=== PATIENT | female | born 1985 | race African-American/Black ===

== ENCOUNTER 2021-06-17 10:04 | Emergency (ER) | payer BC ==
--- OUTSIDE RECORDS SUMMARY | 2021-06-17 10:07 | XMS REPORT | Continuity of Care Document ---
:1985 Author Organization [facility] t Address [address] [place] [address] Care Team Providers Name Role Phone Myrna Gonsales NP Attending Clinician Problems Condition Condition Condition Status Onset Resolution Last Treating Co mments Source Name Details Category Date Date Treatment Clinician Date Seasonal [facility]al [facility] Migraines Migraines Problem [facility] Anxiety Anxiety Problem [facility] Kidney Kidney Problem Active [facility] Allergies, Adverse Reactions, Alerts Allergy Allergy Status Severity Reaction(s) Onset Inactive Treating Comm ents Source Name Type Date Date Clinician Benadryl Adverse Active sneezing, [facility] Reaction [facility]chy nose [facility] Medications Ordered Filled Start Stop Current Ordering Indication Dosage Frequency Signature Comments Components Source Medication Medication Date Date Medication? Clinician (SIG) Name Name Tessalgurpreet Tessalon 2020- No Adeline [address] [facility] Perles Perles 01-28 Millender as needed [facility] cough [facility] Augmentin Augmentin 2020- No Adeline [address] [facility] 01-28 [facility] Diflucan Diflucan 2019- No Adeline as [facility] -01 28-05 [facility] directed [facility] BusPIRone BusPIRone 2018-0 Yes Adeline [address] [facility] HCl HCl 5-30 Millender as needed [facility]: for [facility] 00 anxiety [facility] Multivitami Multivitami Yes Adeline not [facility] n Gummies n Gummies Millender defined [facility] - Adult Adult [facility] Procedures This patient has no known procedures. Encounters Start End Encounter Admission Attending Care Care Encounter Source Date/Time Date/Time Type Type Clinicians Facility Department ID 2021-02-07 2021-02-07 Emergency [facility] [id number] 14:29:00 15:56:00 Phoebe Knight [id number] [place] [id number] [place] [id number] 2020-01-29 2020-01-29 Outpatient [facility] [id number] [facility] 23:38:00 23:38:00 [facility] 2020-01-29 2020-01-29 [facility] [id number] [facility] 11:30:00 11:30:00 [facility] 2018-04-26 2018-04-26 [facility] [id number] [facility] 14[facility]15:00 14:15:00 [facility] Results This patient has no known results.
--- NOTE | 2021-06-17 11:18 | EDPHYS ---
Physician Documentation [facility] Name: Mavis Weeks Age: 35 yrs Sex: Female : 1985 Arrival Date: 06/17/2021 Time: 10:08 Bed 17 Private MD: ED Physician Kaylah Diaz HPI: 06/17 11:09 This 35 yrs old Black Female presents to ER via Ambulatory with complaints of Leg ma2 Pain-Poss Infection. 11:09 The patient presents with pain, tenderness. The complaints affect the left moran. Onset: ma2 The symptoms/episode began/occurred gradually, 1 day(s) ago. Associated signs and symptoms: Pertinent negatives nausea, rash, vomiting, warmth. Severity of symptoms: At their worst the symptoms were mild, in the emergency department the symptoms are unchanged. 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 Flu vaccine is not up to date. - Social history:: Smoking status: Patient denies any tobacco usage or history of. - Family history:: not pertinent. ROS: 11:09 Constitutional: Negative for fever, chills, and weight loss. ma2 11:09 All other systems are negative. Exam: 11:09 Constitutional: This is a well developed, well nourished patient who is awake, alert, ma2 and in no acute distress. 11:15 Head/Face: Normocephalic, atraumatic. Eyes: Pupils equal round and reactive to light, ma2 extra-ocular motions intact. Lids and lashes normal. Conjunctiva and sclera are non-icteric and not injected. Cornea within normal limits. Periorbital areas with no swelling, redness, or edema. ENT: Nares patent. No nasal discharge, no septal abnormalities noted. Tympanic membranes are normal and external auditory canals are clear. Oropharynx with no redness, swelling, or masses, exudates, or evidence of obstruction, uvula midline. Mucous membranes moist. Neck: Trachea midline, no thyromegaly or masses palpated, and no cervical lymphadenopathy. Supple, full range of motion without nuchal rigidity, or vertebral point tenderness. No Meningismus. Chest/axilla: Normal chest wall appearance and motion. Nontender with no deformity. No lesions are appreciated. Cardiovascular: Regular rate and rhythm with a normal S1 and S2. No gallops, murmurs, or rubs. Normal PMI, no JVD. No pulse deficits. Respiratory: Lungs have equal breath sounds bilaterally, clear to auscultation and percussion. No rales, rhonchi or wheezes noted. No increased work of breathing, no retractions or nasal flaring. Abdomen/GI: Soft, non-tender, with normal bowel sounds. No distension or tympany. No guarding or rebound. No evidence of tenderness throughout. Back: No spinal tenderness. No costovertebral tenderness. Full range of motion. Skin: Warm, dry with normal turgor. Normal color with no rashes, no lesions, and no evidence of cellulitis. MS/ Extremity: left leg pain and redness area of induration 1x1 cm, no fluctuene, otherwise Pulses equal, no cyanosis. Neurovascular intact. Full, normal range of motion. Neuro: Awake and alert, GCS 15, oriented to person, place, time, and situation. Cranial nerves II-XII grossly intact. Motor strength 5/5 in all extremities. Sensory grossly intact. Cerebellar exam normal. Normal gait. Vital Signs: 10:17 BP 115 / 64; Pulse 80; Resp 16 S; Temp 98.1(TE); Pulse Ox 100% on R/A; Weight 92.99 kg ca1 (R); Height 5 ft. 5 in. (165.10 cm) (R); Pain 10/10; 11:43 BP 134 / 61; Pulse 73; Resp 15; Pulse Ox 100% ; ll1 10:17 Body Mass Index 34.11 (92.99 kg, 165.10 cm) ca1 MDM: 10:46 Patient medically screened. ma2 11:15 Differential diagnosis: contusion, abrasion. Differential diagnosis: cellulitis no ma2 abscess. Data reviewed: vital signs, nurses notes. Counseling: I had a detailed discussion with the patient and/or guardian regarding: the historical points, exam findings, and any diagnostic results supporting the discharge/admit diagnosis, the presence of at least one elevated blood pressure reading (>120/80) during this emergency department visit, the need for outpatient follow up. Response to treatment: the patient's symptoms have markedly improved after treatment. Administered Medications: : Drug: Ketorolac 60 mg Route: IM; Site: right vastus lateralis; ll1 11:42 Follow up: Response: No adverse reaction; Pain is decreased; RASS: Alert and Calm (0) ll1 11:21 Drug: Clindamycin 300 mg Route: PO; ll1 11:42 Follow up: Response: No adverse reaction ll1 Disposition Summary: 06/17/21 11:17 Discharge Ordered Location: Home ma2 Condition: Stable ma2 Diagnosis - Cellulitis of left lower limb ma2 Followup: ma2 - With: Private Physician - When: Tomorrow - Reason: If symptoms return, Continuance of care Discharge Instructions: - Discharge Summary Sheet ma2 - Cellulitis, Adult ma2 Forms: - Medication Reconciliation Form ma2 - Thank You Letter ma2 - Antibiotic Education ma2 - Prescription Opioid Use ma2 Prescriptions: - Clindamycin HCl 300 mg Oral Capsule - take 1 capsule by ORAL route every 6 hours for 10 days; 40 capsule; Refills: 0, ma2 Product Selection Permitted - Diclofenac Sodium 75 mg Oral Tablet Sustained Release - take 1 tablet by ORAL route 2 times per day; 30 tablet; Refills: 0, Product ut2 Selection Permitted Signatures: Kaylah Diaz MD MD ut2 Paty Wise RN RN ca1 Shawn Scherer RN RN ll1
--- NOTE | 2021-06-17 11:18 | ER ---
Nurse's Notes [facility] Name: Mavis Weeks Age: 35 yrs Sex: Female : 1985 Arrival Date: 06/17/2021 Time: 10:08 Bed 17 Private MD: Diagnosis: Cellulitis of left lower limb Presentation: 06/17 10:17 Chief complaint: Patient states: Abscess on L leg, moran x 1 week. Coronavirus screen: ca1 Client denies travel out of the [place] in the last 14 days. At this time, the client does not indicate any symptoms associated with coronavirus-19. Ebola Screen: Patient negative for fever greater than or equal to 101.5 degrees Fahrenheit, and additional compatible Ebola Virus Disease symptoms Patient denies exposure to infectious person. Patient denies travel to an Ebola-affected area in the 21 days before illness onset. No symptoms or risks identified at this time. Initial Sepsis Screen: Does the patient meet any 2 criteria? No. Patient's initial sepsis screen is negative. Does the patient have a suspected source of infection? No. Patient's initial sepsis screen is negative. Risk Assessment: Do you want to hurt yourself or someone else? Patient reports no desire to harm self or others. Onset of symptoms was June 17, 2021. 10:17 Method Of Arrival: Ambulatory ca1 10:17 Acuity: EUN 4 ca1 Triage Assessment: 10:20 General: Appears in no apparent distress. Behavior is calm, cooperative, appropriate ll1 for age. Pain: Complains of pain in left moran Quality of pain is described as aching. Derm: Abscess located on left moran is dime sized, has clear drainage, is hot to touch, is red. 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 Flu vaccine is not up to date. - Social history:: Smoking status: Patient denies any tobacco usage or history of. - Family history:: not pertinent. Screenin:44 Abuse screen: Denies threats or abuse. Nutritional screening: No deficits noted. ll1 Tuberculosis screening: No symptoms or risk factors identified. Fall Risk None identified. Total Caldera Fall Scale indicates No Risk (0-24 pts). Assessment: 11:45 Reassessment: No changes from previously documented assessment. Patient and/or family ll1 updated on plan of care and expected duration. Pain level reassessed. Patient is alert, oriented x 3, equal unlabored respirations, skin warm/dry/pink. Patient states feeling better. Vital Signs: 10:17 BP 115 / 64; Pulse 80; Resp 16 S; Temp 98.1(TE); Pulse Ox 100% on R/A; Weight 92.99 kg ca1 (R); Height 5 ft. 5 in. (165.10 cm) (R); Pain 10/10; 11:43 BP 134 / 61; Pulse 73; Resp 15; Pulse Ox 100% ; ll1 10:17 Body Mass Index 34.11 (92.99 kg, 165.10 cm) ca1 ED Course: 10:08 Patient arrived in ED. ds1 10:18 Triage completed. ca1 10:18 Arm band placed on right wrist. ca1 10:21 Shawn Scherer, RN is Primary Nurse. ll1 10:21 Patient placed in an exam room, on a stretcher. ll1 10:30 Kaylah Diaz MD is Attending Physician. ma2 11:44 Patient has correct armband on for positive identification. Bed in low position. Call ll1 light in reach. Side rails up X 1. Cardiac monitoring not applicable on this patient. 11:44 No provider procedures requiring assistance completed. Patient did not have IV access ll1 during this emergency room visit. Administered Medications: 11:21 Drug: Ketorolac 60 mg Route: IM; Site: right vastus lateralis; ll1 11:42 Follow up: Response: No adverse reaction; Pain is decreased; RASS: Alert and Calm (0) ll1 11:21 Drug: Clindamycin 300 mg Route: PO; ll1 11:42 Follow up: Response: No adverse reaction ll1 Outcome: 11:17 Discharge ordered by . ma2 11:44 Discharged to home ambulatory. ll1 11:44 Condition: stable 11:44 Discharge instructions given to patient, Instructed on discharge instructions, follow up and referral plans. medication usage, wound care, Demonstrated understanding of instructions, follow-up care, medications, wound care, Prescriptions given X 2. 11:45 Patient left the ED. ll1 Signatures: Shanika Berman1 Kaylah Diaz MD MD ma2 Paty Wise RN RN ca1 Shawn Scherer RN RN ll1
[2021-06-17] MEDS ORDERED: KETOROLAC 30 MG/ML INJ ONE (11:28)
[2021-06-17 11:52] VITALS: TEMP 98.1; O2SAT 100
[2021-06-17 11:53] VITALS: BP 134/61
== END 2021-06-17 11:45 | disposition home or self-care (01) ==
LOC: ER 10:04
DX: L03.116 Cellulitis of left lower limb (principal)
CPT/HCPCS: 96372; 99283

== ENCOUNTER 2021-09-15 01:25 | Emergency (ER) | payer BC ==
--- NOTE | 2021-09-15 02:54 | ER ---
Nurse's Notes [facility] Name: Mavis Weeks Age: 35 yrs Sex: Female : 1985 Arrival Date: 09/15/2021 Time: 01:29 Bed 20 Private MD: Diagnosis: Acute tonsillitis, unspecified Presentation: 09/15 01:37 Chief complaint: Patient states: States she has been struggling with a sore throat for wg 3 days and hasn't gotten better. Has tried motrin, gargling salt water, etc. Pt denies any other symptoms including respiratory, fevers or chills. Coronavirus screen: Vaccine status: Patient reports being unvaccinated. Ebola Screen: Patient negative for fever greater than or equal to 101.5 degrees Fahrenheit, and additional compatible Ebola Virus Disease symptoms Patient denies exposure to infectious person. Patient denies travel to an Ebola-affected area in the 21 days before illness onset. No symptoms or risks identified at this time. Initial Sepsis Screen: Does the patient meet any 2 criteria? No. Patient's initial sepsis screen is negative. Does the patient have a suspected source of infection? No. Patient's initial sepsis screen is negative. Risk Assessment: Do you want to hurt yourself or someone else? Patient reports no desire to harm self or others. Onset of symptoms was September 12, 2021. 01:37 Method Of Arrival: Ambulatory 01:37 Acuity: EUN 4 Triage Assessment: 01:40 General: Appears in no apparent distress. well groomed, well developed, Behavior is calm, cooperative, appropriate for age. Pain: Complains of pain in Throat. EENT: Reports Sore throat when swallowing. . 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 - Social history:: Smoking status: Patient denies any tobacco usage or history of. Screenin:16 Abuse screen: Denies threats or abuse. Denies injuries from another. Nutritional sj1 screening: No deficits noted. Tuberculosis screening: No symptoms or risk factors identified. Fall Risk None identified. Assessment: 02:15 General: Appears in no apparent distress. Behavior is calm, cooperative, appropriate sj1 for age. Pain: Complains of pain in throat Pain does not radiate. Pain currently is 10 out of 10 on a pain scale. at worst was 10 out of 10 on a pain scale. level that patient reports is acceptable is 2 out of 10 on a pain scale. Quality of pain is described as aching, Pain began 2-3 days ago. Is continuous. Neuro: No deficits noted. Cardiovascular: No deficits noted. Respiratory: No deficits noted. Airway is patent Trachea midline Respiratory effort is even, unlabored, Respiratory pattern is regular, symmetrical, Breath sounds are clear. GI: No deficits noted. : No deficits noted. EENT: Throat Reports difficulty swallowing. Derm: No deficits noted. Musculoskeletal: No deficits noted. Vital Signs: 01:37 BP 115 / 80; Pulse 88; Resp 18; Temp 98.9; Pulse Ox 100% on R/A; Weight 88.9 kg; Height wg 5 ft. 5 in. (165.10 cm); Pain 9/10; 03:01 BP 114 / 68; Pulse 69; Resp 16 S; Temp 98.9; Pulse Ox 100% on R/A; Pain 10/10; sj1 01:37 Body Mass Index 32.62 (88.90 kg, 165.10 cm) ED Course: 01:29 Patient arrived in ED. wm 01:40 Triage completed. wg 01:40 Arm band placed on right wrist. wg 01:43 Dustin Hogan PA is PHCP. cp 01:43 Dustin Aceves MD is Attending Physician. cp 02:16 Patient has correct armband on for positive identification. Call light in reach. Side sj1 rails up X 1. 02:16 No provider procedures requiring assistance completed. sj1 02:17 Rapid Strep Sent. sj1 03:01 Patient did not have IV access during this emergency room visit. sj1 Administered Medications: No medications were administered Outcome: 02:53 Discharge ordered by . cp 03:01 Discharged to home ambulatory. sj1 03:01 Condition: stable 03:01 Discharge instructions given to patient, Instructed on discharge instructions, follow up and referral plans. medication usage, Demonstrated understanding of instructions, follow-up care, medications, Prescriptions given X 2. 03:01 Patient left the ED. sj1 Signatures: Dustin Hogan PA PA cp Marsh, Wendy wm Gamba, Liam, RN wg Sayda Gaines RN RN sj1
--- NOTE | 2021-09-15 02:54 | EDPHYS ---
Physician Documentation [facility] Name: Mavis Weeks Age: 35 yrs Sex: Female : 1985 Arrival Date: 09/15/2021 Time: 01:29 Bed 20 Private MD: Dustin Sesay HPI: 09/15 02:05 This 35 yrs old Black Female presents to ER via Ambulatory with complaints of Sore cp Throat. 02:05 The patient presents with sore throat. Onset: The symptoms/episode began/occurred 3 cp day(s) ago. 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 - Social history:: Smoking status: Patient denies any tobacco usage or history of. ROS: 02:10 Constitutional: Negative for body aches, chills, fever, poor PO intake. cp 02:10 Eyes: Negative for injury, pain, redness, and discharge. cp 02:10 ENT: Positive for sore throat, Negative for drainage from ear(s), ear pain, difficulty swallowing, difficulty handling secretions. 02:10 Respiratory: Negative for cough, shortness of breath, wheezing. 02:10 Abdomen/GI: Negative for abdominal pain, nausea, vomiting, and diarrhea, constipation, anorexia. 02:10 Skin: Negative for rash. 02:10 Neuro: Negative for headache, weakness. 02:10 All other systems are negative. Exam: 02:12 Constitutional: The patient appears in no acute distress, alert, awake, non-toxic, well cp developed, well nourished. 02:12 Head/Face: Normocephalic, atraumatic. cp 02:12 Eyes: Periorbital structures: appear normal, Conjunctiva: normal, no exudate, no injection, Sclera: no appreciated abnormality, Lids and lashes: appear normal, bilaterally. 02:12 ENT: External ear(s): are unremarkable, Ear canal(s): are normal, clear, TM's: dullness, bilaterally, Nose: is normal, Mouth: Lips: moist, Oral mucosa: pink and intact, moist, Posterior pharynx: Airway: no evidence of obstruction, patent, Tonsils: bilaterally enlarged, with erythema, no exudate, Uvula: midline, non-edematous, no erythema, swelling, is not appreciated, erythema, that is mild, exudate, is not appreciated, Voice: is normal. 02:12 Neck: ROM/movement: Meningeal signs: are not present, nuchal rigidity, is not appreciated, Lymph nodes: lymphadenopathy is appreciated, anterior cervical nodes. 02:12 Chest/axilla: Inspection: normal. 02:12 Cardiovascular: Rate: normal. 02:12 Respiratory: the patient does not display signs of respiratory distress, Respirations: normal, no use of accessory muscles, no retractions, labored breathing, is not present. Vital Signs: 01:37 BP 115 / 80; Pulse 88; Resp 18; Temp 98.9; Pulse Ox 100% on R/A; Weight 88.9 kg; Height wg 5 ft. 5 in. (165.10 cm); Pain 9/10; 03:01 BP 114 / 68; Pulse 69; Resp 16 S; Temp 98.9; Pulse Ox 100% on R/A; Pain 10/10; sj1 01:37 Body Mass Index 32.62 (88.90 kg, 165.10 cm) wg MDM: 01:44 Patient medically screened. alexa 02:15 Differential diagnosis: apthous stomatitis, apthous ulcer, epiglottitis, sophia-velarde cp virus, group A strep tonsillitis, dxiie's angina, mononucleosis, peritonsillar abscess pharyngitis, retropharyngeal abcess. 02:52 Data reviewed: vital signs, nurses notes, and as a result, I will discharge patient. cp 02:52 Counseling: I had a detailed discussion with the patient and/or guardian regarding: the cp historical points, exam findings, and any diagnostic results supporting the discharge/admit diagnosis, to return to the emergency department if symptoms worsen or persist or if there are any questions or concerns that arise at home. 09/15 02:00 Order name: Rapid Strep cp 09/15 02:59 Order name: Throat Culture EDMS Administered Medications: No medications were administered Disposition Summary: 09/15/21 02:53 Discharge Ordered Location: Home cp Problem: new cp Symptoms: are unchanged cp Condition: Stable cp Diagnosis - Acute tonsillitis, unspecified cp Followup: cp - With: Private Physician - When: 2 - 3 days - Reason: Worsening of condition Discharge Instructions: - Discharge Summary Sheet cp - Tonsillitis cp Forms: - Medication Reconciliation Form cp - Thank You Letter cp - Antibiotic Education cp - Prescription Opioid Use cp Prescriptions: - Augmentin 875-125 mg Oral Tablet - take 1 tablet by ORAL route every 12 hours for 10 days; 20 tablet; Refills: 0, cp Product Selection Permitted - Ibuprofen 800 mg Oral Tablet - take 1 tablet by ORAL route every 8 hours As needed take with food; 30 tablet; cp Refills: 0, Product Selection Permitted Addendum: 09/16/2021 10:04 Co-signature as Attending Physician, Dustin Aceves MD I agree with the assessment and c escoto plan of care. Signatures: Dispatcher [employer] Dustin Chavarria MD MD cha Page, Corey, PA PA Memo Godoy, RN wg
[2021-09-15 03:11] VITALS: TEMP 98.9; O2SAT 100
[2021-09-15 03:12] VITALS: BP 114/68
== END 2021-09-15 03:01 | disposition home or self-care (01) ==
LOC: ER 01:25
DX: J03.90 Acute tonsillitis, unspecified (principal)
CPT/HCPCS: 87070; 87081; 99283

== ENCOUNTER 2022-07-27 15:20 | Emergency (ER) | payer BC ==
--- OUTSIDE RECORDS SUMMARY | 2022-07-27 15:24 | XMS REPORT | Continuity of Care Document ---
:1985 Author Organization [facility] t Address [address] [place] [address] Care Team Providers Name Role Phone SaschaAdeline Attending Clinician Unavailable Rosalia Gonsales NP Attending Clinician ROSALIA GONSALES Attending Clinician Unavailable Payers Payer Name Policy Type Policy Number Effective Date Expiration Date S ource Problems Condition Condition Condition Status Onset Resolution Last Treating Co mments Source Name Details Category Date Date Treatment Clinician Date Seasonal Seasonal Problem Active Commo n allergies allergies Spir [facility] Migraines Migraines Problem Active Com mon [facility] Anxiety Anxiety Problem Active Common [facility] Kidney Kidney Problem Active Common stones stones [facility] No known No known Disease Unive rs active active ity of problems problems [facility] Allergies, Adverse Reactions, Alerts Allergy Allergy Status Severity Reaction(s) Onset Inactive Treating Comm ents Source Name Type Date Date Clinician NO KNOWN Drug Active Univers ALLERGIE Class ity of S [facility] Benadryl Adverse Active sneezing, Comm on Reaction itchy nose Spir [facility] Social History Social Habit Start Date Stop Date Quantity Comments Source Exposure to Not sure [facility] SARS-CoV-2 (event) Medica l Branch Sex Assigned At [birth year] [facility] 00:00:00 00:00:00 [facility] [place] Smoking Status Start Date Stop Date Source Unknown if ever smoked [facility] Medications Ordered Filled Start Stop Current Ordering Indication Dosage Frequency Signature Comments Components Source Medication Medication Date Date Medication? Clinician (SIG) Name Name methylPREDN Yes [id number] Take by Univers ISolone 4 3-14 mouth ity of mg tablets 00:00: SEE-INSTRU [place] 00 CTIONS. Medical follow Branch package directions dexamethaso 2020- No 10mg 10 mg, Uni vers ne 02-07 Intramuscu ity of (DECADRON 22:45: 21:35 lar, ONCE, [place] PHOSPHATE) 00 :00 1 dose, Medica l injection Sat Branch 10 mg 02/07/21 at 1645, Routine amoxicillin Yes [id number] 500mg Take 1 Univers 500 mg 02-07 capsule by ity of capsule 00:00: mouth 3 (three) Medical times Branch daily. Tessalon Tessalon 2020- No Adeline 1 capsule Common Perles Perles 01-28 Mill[place] as needed Spirit 00:00: 00:00 for cough - [facility]I 00 :00 [facility] Augmentin Augmentin 2019- No Adeline 1 tablet Common 01-28 [place] Spirit 00:00: 00:00 - [facility]I 00 :00 [facility] Diflucan Diflucan 2020- No Adeline as Com mon 01-28 [place] directed Spiri t 00:00: 00:00 - CHI 00 :00 [facility] BusPIRone BusPIRone 0 Yes Adeline 1 tablet Common HCl HCl 5-30 Millender as needed Spiri t 00:00: for - CHI 00 anxiety [facility] Multivitami Multivitami Yes Adeline not Common n Gummies n Gummies Millender defined Spirit Adult Adult - CHI [facility] Vital Signs Vital Name Observation Time Observation Value Comments Source Systolic blood 2021-02-07 20:28:00 121 mm[Hg] Univer sity pressure [facility] Diastolic blood 2021-02-07 20:28:00 78 mm[Hg] [facility] rate 2021-02-07 20:28:00 80 /min Universi [facility] Body temperature 2021-02-07 20:28:00 36.94 [facility] Respiratory rate 2021-02-07 20:28:00 20 /min Univ ers[facility] Body weight 2021-02-07 20:28:00 86.183 kg Universi ty of [facility] Oxygen saturation in 2021-02-07 20:28:00 99 /min University of Arterial blood by [facility] Pulse oximetry Branch Systolic blood 2021-02-07 20:28:00 121 mm[Hg] Univer sity of pressure [place] [facility] [place] Diastolic blood 2021-02-07 20:28:00 78 mm[Hg] Unive rsity of pressure [facility] Branch Heart rate 2021-02-07 20:28:00 80 /min Universi ty of [facility] Body temperature 2021-02-07 20:28:00 36.94 [facility] Respiratory rate 2021-02-07 20:28:00 20 /min [facility] ersity of [facility] Body weight 2021-02-07 20:28:00 86.183 kg Universi ty of [facility] Oxygen saturation in 2021-02-07 20:28:00 99 /min University of Arterial blood by [facility] Pulse oximetry Branch Procedures Procedure Date / Time Performed Performing Clinician Sour e POCT TEST 2021-02-07 21:05:00 Rosalia Gonsales [facility] RAPID STREP SCREEN 2021-02-07 21:01:00 Rosalia Gonsales [facility] FOR GROUP A Medical Branch NOTICE OF PRIVACY 2021-02-07 20:21:12 Doctor Unassigned, No Univ [facility] PRACTICES Name Medical Branch CONSENT/REFUSAL FOR 2021-02-07 20:20:57 [facility], [facility] Name Medical Branch TREATMENT Encounters Start End Encounter Admission Attending Care Care Encounter Source Date/Time Date/Time Type Type Clinicians Facility Department ID 2021-12-23 Outpatient Sascha [facility] [id number] Common 11:11:34 Adeline [id number] [facility] 2021-02-07 2021-02-07 Emergency rDu [facility] [id number] 14:29:00 15:56:00 Rosalia Knight [id number] [place] [id number] [place] [id number] [facility] 2021-02-07 2021-02-07 Emergency [facility] [id number] Univers 14:29:00 15:56:00 Rosalia Knight [id number] italfa [facility] [id number] [facility] [id number] [place] [id number] Branch 2021-02-07 2021-02-07 Emergency X [facility] ERT [id number] Univers 14:29:00 14:29:00 ROSALIA pitt [facility] 2020-01-29 2020-01-29 [facility] [id number] Common 23:38:00 23:38:00 t [facility] [address] [facility] 2020-01-29 2020-01-29 [facility] [id number] Common 11:30:00 11:30:00 t [facility] [address] [facility] 2018-04-26 2018-04-26 [facility] [id number] Common 14:15:00 14:15:00 t [facility] [address] [facility] Results Test Description Test Time Test Comments Results Result Comments Source RAPID STREP SCREEN FOR GROUP A 2021-02-07 21:13:42 Test Item Value Reference Range Interpretation Comme nts Streptococcus pyogenes (group A) antigen (test code = 24327- 2) Negative Negative Lab Interpretation (test code = 49973-0) [id number]:05[facility]00 Test Item Value Reference Range Interpretation Comments POCT PREG (test code = 1605) negative On board controls acceptable with present C Line (test code = 3574) POCT PREG LOT # (test code = 3575) [id number] POCT PREG TEST DATE (test 2022-09-27 code = 3576) Lab Interpretation (test code = Normal 10137-5) [facility]
[2022-07-27] MEDS ORDERED: KETOROLAC 30 MG/ML INJ ONE ×2 (17:13→17:19)
--- NOTE | 2022-07-27 18:18 | RAD REPORT ---
EXAM DESCRIPTION: RAD - C Spine Ap/Lat - 07/27/2022 5:58 pm CLINICAL HISTORY: PAIN COMPARISON: SPINE CERVICAL AP LAT dated 03/23/2015 FINDINGS: No acute fracture. No malalignment. No significant focal degenerative changes. IMPRESSION: No acute osseous abnormality involving the cervical spine.
--- NOTE | 2022-07-27 18:43 | ER ---
Nurse's Notes [facility] Name: Mavis Weeks Age: 36 yrs Sex: Female : 1985 Arrival Date: 07/27/2022 Time: 15:26 Bed 25 Private MD: Diagnosis: Acute tonsillitis, unspecified;Cervicalgia Presentation: 07/27 15:46 Chief complaint: Patient states: Tuesday i dont know if i lifted something but i am tw2 having a sharp pain in the back of my neck and running down my spine since Tuesday. and another thing i am here for is a severe sore throat that is has been off and on for a month but in the past 2 days it has been the worst that it has been. no fever. no nasal congestion. no cough. i do have allergies but i havent had any drainage so i dont know. Coronavirus screen: sore throat, Client presents with at least one sign or symptom that may indicate coronavirus-19. Standard/surgical mask placed on the client. Provider contacted for isolation considerations. Ebola Screen: Patient denies travel to an Ebola-affected area in the 21 days before illness onset. Initial Sepsis Screen: Does the patient meet any 2 criteria? No. Patient's initial sepsis screen is negative. Does the patient have a suspected source of infection? No. Patient's initial sepsis screen is negative. Risk Assessment: Do you want to hurt yourself or someone else? Patient reports no desire to harm self or others. Onset of symptoms was July 27, 2022. 15:46 Method Of Arrival: Ambulatory tw2 15:46 Acuity: EUN 3 tw2 Triage Assessment: 15:49 General: Appears in no apparent distress. uncomfortable, slender, well groomed, tw2 Behavior is calm, cooperative, appropriate for age. Pain: Complains of pain in neck pain. Neuro: Level of Consciousness is awake, alert, obeys commands, Oriented to person, place, time, situation. 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 - Social history:: Smoking status: Reported history of juuling and/or vaping. i started vaping 5 days ago. Screenin:10 Abuse screen: Denies threats or abuse. Denies injuries from another. Nutritional eh3 screening: No deficits noted. Tuberculosis screening: No symptoms or risk factors identified. Fall Risk None identified. Assessment: 16:10 General: Appears in no apparent distress. uncomfortable, Behavior is calm, cooperative, eh3 appropriate for age. Pain: Complains of pain in posterior neck Pain radiates to thoracic area and lumbar area Pain currently is 9 out of 10 on a pain scale. Quality of pain is described as sharp, shooting, stabbing, Pain began 2-3 days ago. Is continuous, Alleviated by nothing. Aggravated by increased activity, repositioning, weight bearing. Neuro: Level of Consciousness is awake, alert, obeys commands, Oriented to person, place, time, situation, Patient Intake Representative are equal bilaterally Moves all extremities. Gait is steady, Speech is normal, Facial symmetry appears normal, Pupils are PERRLA, Intact. Cardiovascular: Capillary refill < 3 seconds Patient's skin is warm and dry. Respiratory: Airway is patent Respiratory effort is even, unlabored. GI: No signs and/or symptoms were reported involving the gastrointestinal system. : No signs and/or symptoms were reported regarding the genitourinary system. EENT: No signs and/or symptoms were reported regarding the EENT system. Derm: No signs and/or symptoms reported regarding the dermatologic system. Musculoskeletal: Circulation, motion, and sensation intact. Range of motion: intact in all extremities. Vital Signs: 15:46 BP 107 / 81; Pulse 70; Resp 17; Temp 98.5(O); Pulse Ox 100% on R/A; Weight 70.31 kg tw2 (R); Height 5 ft. 5 in. (165.10 cm); Pain 10/10; 16:00 BP 120 / 83; Pulse 77; Resp 18; Pulse Ox 100% on R/A; Pain 9/10; eh3 17:00 BP 109 / 79; Pulse 74; Resp 18; Pulse Ox 99% on R/A; Pain 9/10; eh3 17:58 BP 122 / 109; Pulse 64; Resp 18; Pulse Ox 100% on R/A; Pain 3/10; eh3 19:00 BP 109 / 68; Pulse 69; Resp 17; Pulse Ox 100% on R/A; Pain 3/10; eh3 15:46 Body Mass Index 25.79 (70.31 kg, 165.10 cm) tw2 ED Course: 15:26 Patient arrived in ED. rg4 15:26 Dustin Hogan PA is PHCP. cp 15:26 Donell Contreras DO is Attending Physician. cp 15:48 Triage completed. tw2 15:49 Arm band placed on. tw2 15:52 Kandi Sanchez, RN is Primary Nurse. eh3 16:10 Patient has correct armband on for positive identification. Bed in low position. Call eh3 light in reach. Side rails up X2. Client placed on continuous cardiac and pulse oximetry monitoring. NIBP monitoring applied. 17:20 Strep Sent. eh3 17:20 COVID-19 SARS RT PCR (Document "Date of Onset" if Symptomatic) Sent. eh3 18:01 XRAY C Spine Ap/lat In Process Unspecified. EDMS 19:00 No provider procedures requiring assistance completed. Patient did not have IV access eh3 during this emergency room visit. Administered Medications: 17:10 Drug: Ketorolac 30 mg Route: IM; Site: right deltoid; eh3 18:00 Follow up: Response: Pain is decreased eh3 Medication: 19:00 VIS not applicable for this client. eh3 Outcome: 18:41 Discharge ordered by MD. cp 19:00 Condition: stable eh3 19:00 Discharge instructions given to patient, Instructed on discharge instructions, follow up and referral plans. medication usage, Demonstrated understanding of instructions, follow-up care, medications, Prescriptions given X 3. 19:16 Discharged to home ambulatory. eh3 19:17 Patient left the ED. eh3 Signatures: Dispatcher [employer] EDMS Dustin Hogan PA PA cp Wise, Tara, RN RN tw2 Tran Jimenez rg4 Kandi Sanchez, ALLAN RN eh3 Corrections: (The following items were deleted from the chart) 16:43 16:38 General: Appears in no apparent distress. uncomfortable, Behavior is calm, eh3 cooperative, appropriate for age, eh3 16:43 16:38 Pain: Complains of pain in posterior neck Pain radiates to thoracic area and eh3 lumbar area Pain currently is 9 out of 10 on a pain scale. Quality of pain is described as sharp, shooting, stabbing, Pain began 2-3 days ago. Is continuous, Alleviated by nothing. Aggravated by increased activity, repositioning, weight bearing, [facility] 16:43 16:38 Neuro: Level of Consciousness is awake, alert, obeys commands, Oriented to [address] person, place, time, situation, Patient Intake Representative are equal bilaterally Moves all extremities. Gait is steady, Speech is normal, Facial symmetry appears normal, Pupils are PERRLA, Intact [facility] 16:43 16:38 Cardiovascular: Capillary refill < 3 seconds Patient's skin is warm and dry. [place] [id number] 16:43 16:38 Respiratory: Airway is patent Respiratory effort is even, unlabored, [place] [address] 16:43 16:38 GI: No signs and/or symptoms were reported involving the gastrointestinal system. [place] [id number] 16:43 16:38 : No signs and/or symptoms were reported regarding the genitourinary system. [facility] 16:43 16:38 EENT: No signs and/or symptoms were reported regarding the EENT system. [place] [address] 16:43 16:38 Derm: No signs and/or symptoms reported regarding the dermatologic system. [place] [address] 16:43 16:38 Musculoskeletal: Circulation, motion, and sensation intact. Range of motion: [facility] intact in all extremities, [facility] 16:43 16:38 Abuse screen: Denies threats or abuse. Denies injuries from another. [place] [address] 16:43 16:38 Nutritional screening: No deficits noted. [place] [address] 16:43 16:38 Tuberculosis screening: No symptoms or risk factors identified. [place] [address] 16:43 16:38 Fall Risk None identified. [place] [id number] 16:44 16:38 Patient has correct armband on for positive identification. Bed in low position. [facility] Call light in reach. Side rails up X2. [facility] 16:44 16:38 Client placed on continuous cardiac and pulse oximetry monitoring. NIBP [facility] monitoring applied. [facility]
--- NOTE | 2022-07-27 18:43 | EDPHYS ---
Physician Documentation [facility] Name: Mavis Weeks Age: 36 yrs Sex: Female : 1985 Arrival Date: 07/27/2022 Time: 15:26 Bed 25 Private MD: ED Physician Donell Contreras HPI: 07/27 17:00 This 36 yrs old Black Female presents to ER via Ambulatory with complaints of Neck cp Pain, <24hrs Old, Back Pain, Sore Throat. 17:00 The patient or guardian complains of pain, that is acute, tenderness, stiffness. The cp symptoms are located posterior neck. Onset: The symptoms/episode began/occurred 2 day(s) ago. Context: The neck injury/problem resulted from from unknown cause. 17:00 Associated signs and symptoms: Pertinent positives: sore throat, Pertinent negatives: cp fever, headache, numbness, tingling, weakness, radiating pain down arms, difficulty swallowing. 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 - Social history:: Smoking status: Reported history of juuling and/or vaping. i started vaping 5 days ago. ROS: 17:05 Constitutional: Negative for body aches, chills, fever, poor PO intake. cp 17:05 Eyes: Negative for injury, pain, redness, and discharge. cp 17:05 ENT: Positive for sore throat, Negative for drainage from ear(s), ear pain, sinus congestion, difficulty swallowing, difficulty handling secretions. 17:05 Neck: Positive for pain with movement, stiffness, tenderness, Negative for injury or acute deformity. 17:05 Cardiovascular: Negative for chest pain, edema, palpitations. 17:05 Respiratory: Negative for cough, shortness of breath, wheezing. 17:05 Abdomen/GI: Negative for abdominal pain, nausea, vomiting, and diarrhea. 17:05 Skin: Negative for cellulitis, rash. 17:05 Neuro: Negative for altered mental status, headache, weakness. 17:05 All other systems are negative. Exam: 17:10 Constitutional: The patient appears in no acute distress, alert, awake, non-toxic, well cp developed, well nourished, uncomfortable. 17:10 Head/Face: Normocephalic, atraumatic. cp 17:10 Eyes: Periorbital structures: appear normal, Conjunctiva: normal, no exudate, no injection, Sclera: no appreciated abnormality, Lids and lashes: appear normal, bilaterally. 17:10 ENT: External ear(s): are unremarkable, Ear canal(s): are normal, clear, TM's: bulging, is not appreciated, bilaterally, dullness, bilaterally, erythema, is not appreciated, bilaterally, Nose: is normal, Mouth: Lips: moist, Oral mucosa: moist, Tongue: is normal, Posterior pharynx: Airway: no evidence of obstruction, patent, Tonsils: bilaterally enlarged, with exudate, mild erythema, Uvula: midline, erythema, that is mild, Voice: is normal. 17:10 Neck: ROM/movement: pain, that is mild, with rotation to the right, limited range of motion, is not appreciated, Meningeal signs: are not present, nuchal rigidity, is not appreciated. 17:10 Chest/axilla: Inspection: normal. 17:10 Cardiovascular: Rate: normal, Rhythm: regular. 17:10 Respiratory: the patient does not display signs of respiratory distress, Respirations: normal, no use of accessory muscles, no retractions, labored breathing, is not present, Breath sounds: are clear throughout, no decreased breath sounds, no stridor, no wheezing. 17:10 Abdomen/GI: Inspection: abdomen appears normal, Palpation: abdomen is soft and non-tender, in all quadrants. 17:10 Back: pain, that is mild, of the right trapezius, ROM is normal. 17:10 Skin: no rash present. 17:10 Neuro: Orientation: to person, place \\T\\ time. Mentation: is normal, Motor: moves all fours, strength is normal, Sensation: is normal. Vital Signs: 15:46 BP 107 / 81; Pulse 70; Resp 17; Temp 98.5(O); Pulse Ox 100% on R/A; Weight 70.31 kg tw2 (R); Height 5 ft. 5 in. (165.10 cm); Pain 10/10; 16:00 BP 120 / 83; Pulse 77; Resp 18; Pulse Ox 100% on R/A; Pain 9/10; eh3 17:00 BP 109 / 79; Pulse 74; Resp 18; Pulse Ox 99% on R/A; Pain 9/10; eh3 17:58 BP 122 / 109; Pulse 64; Resp 18; Pulse Ox 100% on R/A; Pain 3/10; eh3 19:00 BP 109 / 68; Pulse 69; Resp 17; Pulse Ox 100% on R/A; Pain 3/10; eh3 15:46 Body Mass Index 25.79 (70.31 kg, 165.10 cm) tw2 MDM: 16:14 Patient medically screened. cp 18:00 Differential diagnosis: cervical strain, tonsillitis, strep throat, retropharyngeal cp abscess. 18:40 Data reviewed: vital signs, nurses notes, lab test result(s), radiologic studies, plain cp films. 07/27 16:57 Order name: Strep; Complete Time: 15:13 cp 07/27 17:01 Order name: COVID-19 SARS RT PCR (Document "Date of Onset" if Symptomatic); Complete cp Time: 15:13 07/27 16:57 Order name: XRAY C Spine Ap/lat; Complete Time: 15:13 cp 07/27 18:14 Order name: Throat Culture EDMS Administered Medications: 17:10 Drug: Ketorolac 30 mg Route: IM; Site: right deltoid; eh3 18:00 Follow up: Response: Pain is decreased eh3 Disposition: 07/28 15:13 Co-signature as Attending Physician, Donell AMBROSIO was immediately available onsite ms3 in the emergency department for consultation in the care of the patient. Disposition Summary: 07/27/22 18:41 Discharge Ordered Location: Home cp Problem: new cp Symptoms: have improved cp Condition: Stable cp Diagnosis - Acute tonsillitis, unspecified cp - Cervicalgia cp Followup: cp - With: Private Physician - When: 2 - 3 days - Reason: Worsening of condition Discharge Instructions: - Discharge Summary Sheet cp - Musculoskeletal Pain cp - Tonsillitis cp - Heat Therapy cp - Neck Exercises cp - Form - Excuse from Work, School, or Physical Activity eh3 - Form - Return To Work eh3 Forms: - Medication Reconciliation Form cp - Thank You Letter cp - Antibiotic Education cp - Prescription Opioid Use cp Prescriptions: - Clindamycin HCl 300 mg Oral Capsule - take 1 capsule by ORAL route every 6 hours for 10 days; 40 capsule; Refills: 0, cp Product Selection Permitted - Cyclobenzaprine 10 mg Oral Tablet - take 1 tablet by ORAL route every 8 hours As needed; 20 tablet; Refills: 0, cp Product Selection Permitted - Diclofenac Sodium 75 mg Oral Tablet Sustained Release - take 1 tablet by ORAL route 2 times per day; 30 tablet; Refills: 0, Product cp Selection Permitted Signatures: Dispatcher [employer] EDMS Dustin Hogan PA PA Karrie Bejarano RN RN tw2 Donell Contreras DO DO ms3 Kandi Sanchez, RN RN eh3
[2022-07-27 19:41] VITALS: TEMP 98.5
[2022-07-27 19:48] VITALS: O2SAT 100
[2022-07-27 19:51] VITALS: BP 109/68
== END 2022-07-27 19:17 | disposition home or self-care (01) ==
LOC: ER 15:20
DX: J03.90 Acute tonsillitis, unspecified (principal); Z20.822 Contact with and (suspected) exposure to COVID-19
CPT/HCPCS: 87070; 87081; 72040; U0003

== ENCOUNTER 2022-10-04 10:31 | Emergency (ER) | payer BC ==
--- OUTSIDE RECORDS SUMMARY | 2022-10-04 10:34 | XMS REPORT | Continuity of Care Document ---
:1985 Author Organization [facility] t Address [address] [place] [address] Care Team Providers Name Role Phone SaschaAdeline Attending Clinician Unavailable Rosalia Gonsales NP Attending Clinician ROSALIA GONSALES Attending Clinician Unavailable Payers Payer Name Policy Type Policy Number Effective Date Expiration Date S ource Problems Condition Condition Condition Status Onset Resolution Last Treating Co mments Source Name Details Category Date Date Treatment Clinician Date Seasonal Seasonal Problem Active Commo n allergies allergies [facility] Migraines Migraines Problem Active Com mon [facility] Anxiety Anxiety Problem Active Common [facility] Kidney Kidney Problem Active Common stones stones [facility] No known No known Disease Unive rs active active ity of problems problems [facility] Allergies, Adverse Reactions, Alerts Allergy Allergy Status Severity Reaction(s) Onset Inactive Treating Comm ents Source Name Type Date Date Clinician NO KNOWN Drug Active Univers ALLERGIE Class ity of S [facility] Benadryl Adverse Active sneezing, Comm on Reaction itchy nose Sp[facility] Social History Social Habit Start Date Stop Date Quantity Comments Source Exposure to Not sure [facility] SARS-CoV-2 (event) Medica l Branch Sex Assigned At [birth year] [facility] 00:00:00 00:00:00 Medical [place] Smoking Status Start Date Stop Date Source Unknown if ever smoked [facility] Medications Ordered Filled Start Stop Current Ordering Indication Dosage Frequency Signature Comments Components Source Medication Medication Date Date Medication? Clinician (SIG) Name Name methylPREDN Yes [id number] Take by Univers ISolone 4 3-14 mouth ity of mg tablets 00:00: SEE-INSTRU T [place] 00 CTIONS. Medical follow Branch package directions dexamethaso 2020- No 10mg 10 mg, Uni vers ne 02-07 Intramuscu ity of (DECADRON 22:45: 21:35 lar, ONCE, T [place] PHOSPHATE) 00 :00 1 dose, Medica l injection Sat Branch 10 mg 02/07/21 at 1645, Routine amoxicillin Yes [id number] 500mg Take 1 Univers 500 mg 02-07 capsule by ity of capsule 00:00: mouth 3 (three) Medical times Branch daily. Tessalon Tessalon 2020- No Adeline 1 capsule Common Perles Perles 01-28 Millender as needed Spirit 00:00: 00:00 for cough - [facility] 00 :00 [facility] Augmentin Augmentin 2019- No Adeline 1 tablet Common 01-28 Millender Spirit 00:00: 00:00 - [facility] 00 :00 [facility] Diflucan Diflucan 2020- No Adeline as Com mon 01-28 Millender directed Spiri t 00:00: 00:00 - [facility]I 00 :00 [facility] BusPIRone BusPIRone 0 Yes Adeline 1 tablet Common HCl HCl 5-30 Millender as needed Spiri t 00:00: for - [facility] [address] [facility] Multivitami Multivitami Yes Adeline not Common n Gummies n Gummies Millender defined Spirit Adult Adult - [facility] Vital Signs Vital Name Observation Time Observation Value Comments Source Systolic blood 2021-02-07 20:28:00 121 mm[Hg] Univer sity pressure [facility] Diastolic blood 2021-02-07 20:28:00 78 mm[Hg] [facility] Heart rate 2021-02-07 20:28:00 80 /min Universi [facility] Body temperature 2021-02-07 20:28:[address] [facility] rate 2021-02-07 20:28:00 20 /min Univ [facility] Body weight 2021-02-07 20:28:00 86.183 kg Universi ty of [facility] Oxygen saturation in 2021-02-07 20:28:00 99 /min University of Arterial blood by [facility] Pulse oximetry Branch Systolic blood 2021-02-07 20:28:00 121 mm[Hg] Univer sity of pressure [place] [facility] [place] Diastolic blood 2021-02-07 20:28:00 78 mm[Hg] Unive rsity of pressure [facility] Branch Heart rate 2021-02-07 20:28:00 80 /min Universi ty of [facility] Body temperature 2021-02-07 20:28:[address] [facility] Respiratory rate 2021-02-07 20:28:00 20 /min [facility] ersity of [facility] Body weight 2021-02-07 20:28:00 86.183 kg Universi ty of [facility] Oxygen saturation in 2021-02-07 20:28:00 99 /min University of Arterial blood by [facility] Pulse oximetry Branch Procedures Procedure Date / Time Performed Performing Clinician Sour e POCT TEST 2021-02-07 21:05:00 Rosalia Gonsales [facility] RAPID STREP SCREEN 2021-02-07 21:01:00 Rosalia Gonsales [facility] FOR GROUP A Medical Branch NOTICE OF PRIVACY 2021-02-07 20:21:12 Doctor Unassigned, No Univ [facility] Name Medical Branch CONSENT/REFUSAL FOR 2021-02-07 20:20:57 [facility], [facility] AND Name Medical Branch TREATMENT Encounters Start End Encounter Admission Attending Care Care Encounter Source Date/Time Date/Time Type Type Clinicians Facility Department ID 2021-12-23 Outpatient Sascha [facility] [id number] Common 11:11:34 Adeline [id number] [facility] 2021-02-07 2021-02-07 Emergency Dru [facility] [id number] 14:29:00 15:56:00 Rosalia Knight [id number] [place] [id number] [place] [id number] [facility] 2021-02-07 2021-02-07 Emergency [facility] [id number] Univers 14:29:00 15:56:00 Rosalia Knight [id number] italfa [facility] [id number] [facility] [id number] [place] [id number] Branch 2021-02-07 2021-02-07 Emergency X [facility] ERT [id number] Univers 14:29:00 14:29:00 ROSALIA pitt [facility] 2020-01-29 2020-01-29 [facility] [id number] Common 23:38:00 23:38:00 t [facility] [address] [facility] 2020-01-29 2020-01-29 [facility] [id number] Common 11:30:00 11:30:00 t [facility] [address] [facility] 2018-04-26 2018-04-26 [facility] [id number] Common 14:15:00 14:15:00 t [facility] [address] [facility] Results Test Description Test Time Test Comments Results Result Comments Source RAPID STREP SCREEN FOR GROUP A 2021-02-07 21:13:42 Test Item Value Reference Range Interpretation Comme nts Streptococcus pyogenes (group A) antigen (test code = 02865- 2) Negative Negative Lab Interpretation (test code = 45046-9) [id number] 21:05:00 Test Item Value Reference Range Interpretation Comments POCT PREG (test code = 1605) negative On board controls acceptable with present C Line (test code = 3574) POCT PREG LOT # (test code = 3575) [id number] POCT PREG TEST DATE (test 2022-09-27 code = 3576) Lab Interpretation (test code = Normal 36270-6) [facility]
--- NOTE | 2022-10-04 12:25 | RAD REPORT ---
EXAM DESCRIPTION: RAD - Wrist Left 3 View - 10/04/2022 11:37 am CLINICAL HISTORY: Left wrist pain status post injury FINDINGS: No fracture or dislocation is seen. If the patient continues to have symptoms to suggest an occult fracture then a followup plain film se belen in 7 days would be recommended
--- NOTE | 2022-10-04 12:36 | EDPHYS ---
Physician Documentation [facility] Name: Mavis Weeks Age: 37 yrs Sex: Female : 1985 Arrival Date: 10/04/2022 Time: 10:33 Bed Treatment Private MD: ED Physician Glen Wilhelm HPI: 10/04 11:07 This 37 yrs old Black Female presents to ER via Ambulatory with complaints of Wrist kb Injury. 11:07 The patient or guardian reports decreased range of motion, pain, tenderness. The kb complaints affect the left wrist diffusely. Context: The problem was sustained at work, resulted from a fall. Onset: The symptoms/episode began/occurred 3 day(s) ago. Modifying factors: The symptoms are alleviated by nothing, the symptoms are aggravated by movement. Associated signs and symptoms: The patient has no apparent associated signs or symptoms. The patient has not experienced similar symptoms in the past. The patient has not recently seen a physician. Pt was pulling a grill out, fell backwards and landed on left wrist. c/o pain and decreased rom. 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 - Social history:: Smoking status: Patient denies any tobacco usage or history of. Patient uses alcohol, occasionally. ROS: 11:07 Constitutional: Negative for fever, chills, and weight loss. kb 11:07 MS/extremity: Positive for pain, of the left wrist. 11:07 All other systems are negative. Exam: 11:07 Hand exam: Exam is positive for decreased range of motion, pain, tenderness, ROM: kb limited active range of motion, in the left wrist, Circulation is intact in all extremities. sensation intact. 11:07 Constitutional: This is a well developed, well nourished patient who is awake, alert, and in no acute distress. Head/Face: Normocephalic, atraumatic. ENT: Moist Mucous membranes Cardiovascular: Regular rate and rhythm with a normal S1 and S2. No gallops, murmurs, or rubs. No pulse deficits. Respiratory: Respirations even and unlabored. No increased work of breathing. Talking in full sentences Skin: Warm, dry with normal turgor. Normal color. Neuro: Awake and alert, GCS 15, oriented to person, place, time, and situation. Moves all extremities. Normal gait. Psych: Awake, alert, with orientation to person, place and time. Behavior, mood, and affect are within normal limits. Vital Signs: 11:05 BP 126 / 79; Pulse 93; Resp 18; Temp 97.9(O); Pulse Ox 100% on R/A; Weight 82.55 kg; ld1 Height 5 ft. 6 in. (167.64 cm); Pain 05/07; 11:05 Body Mass Index 29.37 (82.55 kg, 167.64 cm) ld1 MDM: 11:06 Patient medically screened. kb 11:07 Data reviewed: vital signs, nurses notes. Data interpreted: Pulse oximetry: on room air kb is 100 %. Interpretation: normal. 12:35 Counseling: I had a detailed discussion with the patient and/or guardian regarding: the kb historical points, exam findings, and any diagnostic results supporting the discharge/admit diagnosis, radiology results, the need for outpatient follow up, a orthopedic surgeon, to return to the emergency department if symptoms worsen or persist or if there are any questions or concerns that arise at home. 10/04 11:06 Order name: Wrist Left (3 View) XRAY; Complete Time: 12:26 kb Administered Medications: No medications were administered Disposition: 17:41 Co-signature as Attending Physician, Glen Wilhelm MD. rn Disposition Summary: 10/04/22 12:36 Discharge Ordered Location: Home kb Condition: Stable kb Diagnosis - Other specified sprain of left wrist kb Followup: kb - With: Emergency Department - When: As needed - Reason: Worsening of condition Followup: kb - With: Private Physician - When: 2 - 3 days - Reason: Recheck today's complaints, Continuance of care, Re-evaluation by your physician Discharge Instructions: - Discharge Summary Sheet kb - Wrist Splint, Adult, [id number] kb Forms: - Medication Reconciliation Form kb - Thank You Letter kb - Antibiotic Education kb - Prescription Opioid Use kb Signatures: Dispatcher [employer] EDBetzy Rose FNP-C FNP-Ckb Glen Wilhelm MD MD rn Capri Kat RN RN ld1
--- NOTE | 2022-10-04 12:36 | ER ---
Nurse's Notes [facility] Name: Mavis Weeks Age: 37 yrs Sex: Female : 1985 Arrival Date: 10/04/2022 Time: 10:33 Bed Treatment Private MD: Diagnosis: Other specified sprain of left wrist Presentation: 10/04 11:05 Chief complaint: Patient states: Pulling out grill at work - pt fell backwards onto ld1 hands to catch herself. C/O pain in left hand \T\ left wrist. Coronavirus screen: At this time, the client does not indicate any symptoms associated with coronavirus-19. Ebola Screen: No symptoms or risks identified at this time. Initial Sepsis Screen: Does the patient meet any 2 criteria? No. Patient's initial sepsis screen is negative. Does the patient have a suspected source of infection? No. Patient's initial sepsis screen is negative. Risk Assessment: Do you want to hurt yourself or someone else? Patient reports no desire to harm self or others. Onset of symptoms was October 04, 2022. 11:05 Method Of Arrival: Ambulatory ld1 11:05 Acuity: EUN 4 ld1 Triage Assessment: 11:07 General: Appears in no apparent distress. comfortable, Behavior is calm, cooperative, ld1 appropriate for age. Pain: Complains of pain in left hand Pain does not radiate. Pain currently is 6 out of 10 on a pain scale. EENT: No signs and/or symptoms were reported regarding the EENT system. Neuro: Level of Consciousness is awake, alert, obeys commands, Oriented to person, place, time, situation, Appropriate for age. Cardiovascular: Capillary refill < 3 seconds Patient's skin is warm and dry. Respiratory: Airway is patent Respiratory effort is even, unlabored. GI: Abdomen is round non-distended. : No signs and/or symptoms were reported regarding the genitourinary system. Derm: No signs and/or symptoms reported regarding the dermatologic system. Musculoskeletal: Reports pain in left hand. 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 - Social history:: Smoking status: Patient denies any tobacco usage or history of. Patient uses alcohol, occasionally. Screenin:25 Abuse screen: Denies threats or abuse. Denies injuries from another. Nutritional mb8 screening: No deficits noted. Tuberculosis screening: No symptoms or risk factors identified. Fall Risk None identified. Assessment: 11:23 Musculoskeletal: Reports pain in left wrist since 2 day ago. Patient reports 2 days ago mb8 she fell back and put her hands down to catch herself and heard a pop and had pain to left wrist. Patient said yesterday it started to swell and she iced it and the swelling went down but still has pain today. Vital Signs: 11:05 BP 126 / 79; Pulse 93; Resp 18; Temp 97.9(O); Pulse Ox 100% on R/A; Weight 82.55 kg; ld1 Height 5 ft. 6 in. (167.64 cm); Pain 6/10; 11:05 Body Mass Index 29.37 (82.55 kg, 167.64 cm) ld1 ED Course: 10:33 Patient arrived in ED. mr 11:03 Betzy Soria FNP-C is [facility]. kb 11:03 Glen Wilhelm MD is Attending Physician. kb 11:07 Triage completed. ld1 11:07 Arm band placed on right wrist. ld1 11:20 Win Tinoco, RN is Primary Nurse. mb8 11:25 Patient has correct armband on for positive identification. Bed in low position. Call mb8 light in reach. Side rails up X2. 11:25 No provider procedures requiring assistance completed. Patient did not have IV access mb8 during this emergency room visit. 11:38 Wrist Left (3 View) XRAY In Process Unspecified. EDMS 12:40 Saeed wrap to left wrist. mb8 Administered Medications: No medications were administered Medication: 11:25 VIS not applicable for this client. mb8 Outcome: 12:36 Discharge ordered by . kb 12:44 Discharged to home ambulatory. mb8 12:44 Condition: stable 12:44 Discharge instructions given to patient, Instructed on discharge instructions, follow up and referral plans. Demonstrated understanding of instructions, follow-up care. 12:44 Patient left the ED. mb8 Signatures: Dispatcher [employer] EDMS Betzy Soria, BYRONC HARMONY-Alejandra Ricardo mr Capri Kat, RN RN ld1 Win Tinoco RN RN mb8
[2022-10-04 12:58] VITALS: BP 126/79; TEMP 97.9; O2SAT 100
== END 2022-10-04 12:44 | disposition home or self-care (01) ==
LOC: ER 10:31
DX: S63.592A Other specified sprain of left wrist, initial encounter (principal)
CPT/HCPCS: 99283

== ENCOUNTER 2025-09-17 18:06 | Emergency (ER) | payer BC, SELFPAY ==
--- NOTE | 2025-09-17 18:29 | EDPHYS ---
Physician Documentation [facility] Name: Mavis Weeks Age: 39 yrs Sex: Female : 1985 Arrival Date: 09/17/2025 Time: 18:06 Bed 1 Private MD: ED Physician Donell Contreras HPI: 09/17 18:20 This 39 yrs old Black Female presents to ER via Unassigned with complaints of ms3 contractions. 18:20 39-year-old female presents to the emergency department for contractions every 2 ms3 minutes. Patient states she is a G2, P1 and her last menstrual period was mid November. Patient states she will be 40 weeks tomorrow and was to be induced at [facility]. Patient states she has been having contractions for the last hour. Patient states she has been having bloody show for the last 2 days.. 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 - Infectious Disease History:: Denies. - Social history:: Smoking status: unknown. ROS: 18:20 Constitutional: Negative for fever, and chills. Cardiovascular: Negative for chest ms3 pain, and palpitations. Respiratory: Negative for shortness of breath, cough, wheezing, and pleuritic chest pain, Skin: Negative for injury, rash, and discoloration, 18:20 Abdomen/GI: Positive for Contractions, Exam: 18:20 Constitutional: This is a well developed, well nourished patient who is awake, alert, ms3 and in no acute distress. Cardiovascular: Regular rate and rhythm with a normal S1 and S2. No gallops, murmurs, or rubs. Normal PMI, no JVD. No pulse deficits. Respiratory: Lungs have equal breath sounds bilaterally, clear to auscultation and percussion. No rales, rhonchi or wheezes noted. No increased work of breathing, no retractions or nasal flaring. 18:20 Abdomen/GI: Inspection: gravid appearance, 18:20 : Gravid exam: Fundal height: consistent with gestational age, Cervical size: the ms3 cervix is dilated to approximately 5 cm(s), Effacement: the cervix is 75 % effaced, Station: - 2, Presentation: the presentation is consistent with cephalic-vertex, heart tones: 145 beats/min, the nurse was present for the exam, Vital Signs: 18:26 BP 146 / 89; Pulse 102; Temp 98.2; Pulse Ox 98% ; ll1 MDM: 18:15 Medical Screening Exam initiated ms3 18:20 Differential diagnosis: Labor- Term. ED course: Discussed case with Dr Choudhary and ms3 she accepts patient to [facility]. 18:29 Data reviewed: vital signs, nurses notes, and as a result, I will transfer patient to [facility] higher level of care. Patient in active labor, will transfer to closest appropriate facility, [facility]. Consideration of Admission/Observation Will transfer patient. Management of patient was discussed with the following: OB- Funmi. Counseling: I had a detailed discussion with the patient and/or guardian regarding the historical points, exam findings, and any diagnostic results supporting the discharge/admit diagnosis, the need to transfer to another facility, [facility] does not immediately have the required specialist. Administered Medications: No medications were administered Disposition Summary: 09/17/25 18:28 Transfer Ordered Notes: Transfer Location: [facility] ms3 Reason: Higher level of care ms3 Condition: Stable ms3 Problem: new ms3 Symptoms: are unchanged ms3 Accepting Physician: Dr Choudhary(09/17/25 18:43) zm Diagnosis - Active Labor at 39 wks 6 days ms3 Forms: - Medication Reconciliation Form ms3 - SBAR form ms3 Signatures: Dispatcher [employer] EDMS Donell Contreras DO DO ms3 Rossy Gayatn, RN RN zm Corrections: (The following items were deleted from the chart) 18:16 18:16 CBC+H.LAB.BRZ ordered. EDMS EDMS 18:16 18:16 BASIC METABOLIC PANEL+C.LAB.BRZ ordered. EDMS EDMS 18:16 18:16 TYPE AND SCREEN+BB.LAB.BRZ ordered. EDMS EDMS 18:43 18:28 Dr Choudhary ms3 zm 23:01 18:20 Abdomen/GI: Inspection: gravid appearance, ms3 ms3 23:03 23:00 : Gravid exam: Fundal height: consistent with gestational age, Cervical size: ms3 the cervix is dilated to approximately 5 cm(s), Effacement: the cervix is 75 % effaced, Station: - 2, Presentation: the presentation is consistent with cephalic-vertex, ms3
--- NOTE | 2025-09-17 18:29 | ER ---
Nurse's Notes [facility] Name: Mavis Weeks Age: 39 yrs Sex: Female : 1985 Arrival Date: 09/17/2025 Time: 18:06 Bed 1 Private MD: Diagnosis: Active Labor at 39 wks 6 days Presentation: 09/17 18:08 Chief complaint: Patient states: Pt arrived in ambulance bay PO, states that she is 40 zm weeks and having contractions, started approx 1 hour [employer], lasting around 30 seconds, 2 minutes apart, was scheduled to have induction tomorrow at [facility]. Coronavirus screen: At this time, the client does not indicate any symptoms associated with coronavirus-19. Ebola Screen: No symptoms or risks identified at this time. Initial Sepsis Screen: Does the patient meet any 2 criteria? No. Patient's initial sepsis screen is negative. Does the patient have a suspected source of infection? No. Patient's initial sepsis screen is negative. Risk Assessment: Do you want to hurt yourself or someone else? Patient reports no desire to harm self or others. Onset of symptoms was September 17, 2025. 18:08 Method Of Arrival: Ambulatory zm 18:08 Acuity: EUN 2 zm Triage Assessment: 18:15 General: Appears uncomfortable, Behavior is calm, cooperative, appropriate for age. zm Pain: Complains of pain in abdomen Quality of pain is described as crampy, squeezing. Neuro: Level of Consciousness is awake, alert, obeys commands, Oriented to person, place, time, situation. Cardiovascular: Capillary refill < 3 seconds in bilateral fingers Patient's skin is warm and dry. Respiratory: Airway is patent Respiratory effort is even, unlabored. Respiratory: Respiratory pattern is regular, symmetrical. GI: Reports. GI: Abdomen is round Reports lower abdominal pain, upper abdominal pain. : Reports bloody show x 2 days and loss of mucus plug. Musculoskeletal: Circulation, motion, and sensation intact. Range of motion: intact in all extremities. [employer]: 18:36 2, Full Term 1, Verified zm Historical: - Allergies: 18:36 No Known Allergies; zm - Immunization history:: Adult Immunizations unknown. - Infectious Disease History:: Denies. - Social history:: Smoking status: unknown. Screenin:37 [facility] Fall Risk Assessment (Adult) History of falling in the last 3 months, zm including since admission No falls in past 3 months (0 pts) Confusion or Disorientation No (0 pts) Intoxicated or Sedated No (0 pts) Impaired Gait No (0 pts) Mobility Assist Device Used No (0 pt) Altered Elimination No (0 pt) Score/Fall Risk Level 0 - 2 = Low Risk Oriented to surroundings, Maintained a safe environment, Hourly rounding (assess needs \T\ fall precautionary measures) done. Abuse screen: Denies threats or abuse. Denies injuries from another. Nutritional screening: No deficits noted. Tuberculosis screening: No symptoms or risk factors identified. Assessment: 18:30 Reassessment: Report called to ALLAN Samuels at [facility]. zm 18:38 Reassessment: [facility] at bedside, report given to Pattie WILSON-P. zm 18:40 General: SEE TRIAGE ASSESSMENT. zm Vital Signs: 18:26 BP 146 / 89; Pulse 102; Temp 98.2; Pulse Ox 98% ; ll1 Vitals: 18:36 Heart Tones 145. zm ED Course: 18:08 Patient arrived in ED. ll1 18:11 Donell Contreras DO is Attending Physician. ms3 18:15 Inserted saline lock: 20 gauge in left hand, using aseptic technique. Blood collected. zm Flushed with 10 mL NS. 18:36 Triage completed. zm 18:36 Arm band placed on Patient placed in an exam room. zm 18:37 No provider procedures requiring assistance completed. zm 18:38 Patient has correct armband on for positive identification. Placed in gown. Bed in low zm position. Side rails up X2. Pulse ox on. NIBP on. Door closed. Noise minimized. Warm blanket given. Verbal reassurance given. 18:42 Provided Education on: On need for transfer. zm 18:43 Patient transferred, IV remains in place. zm Administered Medications: No medications were administered Medication: 18:37 VIS not applicable for this client. zm Outcome: 18:28 ER care complete, transfer ordered by . ms3 18:42 Transferred by ground EMS [facility] to [facility], Transfer form completed. X-rays sent w/ patient. 18:42 Condition: good 18:42 Instructed on the need for transfer, 18:43 Patient left the ED. zm Signatures: Shawn Scherer, RN RN ll1 Donell Contreras DO DO ms3 Rossy Gaytan, ALLAN RN zm
[2025-09-17 21:12] VITALS: BP 146/89; TEMP 98.2; O2SAT 98
== END 2025-09-17 18:43 | disposition short-term general hospital (02) ==
LOC: ER 18:06
DX: O75.89 Other specified complications of labor and delivery (principal); Z3A.39 39 weeks gestation of pregnancy
CPT/HCPCS: 99285